=== PATIENT | male | born 1945 | race Two or more races ===

== ENCOUNTER 2021-03-16 07:59 | Emergency (ER) | payer BC, OTHER ==
[~2021-03-16] VITALS: Ht 165.1 cm; Wt 70.3 kg
[2021-03-16] MEDS ORDERED: MORPHINE SULFATE INJECTION 2 MG/ML SYRG IV ONE ×2 (08:30→11:15)
[2021-03-16] MEDS ORDERED: ONDANSETRON HCL 4 MG/2 ML VIAL IV ONE (08:30)
[2021-03-16 11:09] VITALS: BP 111/69
== END 2021-03-16 12:45 | disposition home or self-care (01) ==
LOC: ER 07:59 → EDBD 07:59 → ER 12:45
DX: M51.37 Other intervertebral disc degeneration, lumbosacral region (principal); G89.29 Other chronic pain; M54.50 Low back pain, unspecified; M48.07 Spinal stenosis, lumbosacral region; E78.5 Hyperlipidemia, unspecified
CPT/HCPCS: 72131; 96374; 96375; 99284; J2270; J2405